=== PATIENT | male | born 1970 | race Hispanic/Latino ===

== ENCOUNTER 2018-05-12 02:14 | Emergency (ER) | payer SELFPAY ==
--- NOTE | 2018-05-12 03:55 | ED PDOC ---
HPI: Back Time Seen by Provider: 05/12/18 03:02 Chief Complaint (Nursing): Back Pain Chief Complaint (Provider): Lower back pain xdays History Per: Patient History/Exam Limitations: no limitations Onset/Duration Of Symptoms: Days Current Symptoms Are (Timing): Still Present Additional Complaint(s): 47 yo male with history of chronic back pain and sciatica presents with low back pain. PT states he is walking to [place] and his back and been hurting from walking so much. PT states that he would like some relief. Pt states he cannot afford motrin or a prescription for motrin. Pt denies new trauma, fever/chills, numbness/tingling. Past Medical History Reviewed: Historical Data, Nursing Documentation, Vital Signs Vital Signs: Last Vital Signs Temp 97.7 F 05/12/18 02:45 Pulse 67 05/12/18 02:45 Resp 16 05/12/18 02:45 BP 121/69 05/12/18 02:45 Pulse Ox 97 05/12/18 02:45 - Medical History PMH: No Chronic Diseases - Surgical History Surgical History: No Surg Hx - Family History Family History: States: No Known Family Hx - Living Arrangements Living Arrangements: With Family - Social History Current smoker - smoking cessation education provided: No - Allergies Allergies/Adverse Reactions: Allergies Allergy/AdvReac Type Severity Reaction Status Date / Time No Known Allergies Allergy Verified 05/12/18 02:47 Review of Systems ROS Statement: Except As Marked, All Systems Reviewed And Found Negative Constitutional: Negative for: Fever, Chills Cardiovascular: Negative for: Chest Pain Respiratory: Negative for: Cough Gastrointestinal: Negative for: Nausea, Vomiting, Abdominal Pain Genitourinary Male: Negative for: Dysuria, Frequency Musculoskeletal: Positive for: Back Pain Physical Exam - Reviewed Nursing Documentation Reviewed: Yes Vital Signs Reviewed: Yes - Physical Exam Appears: Positive for: Well, Non-toxic, No Acute Distress Head Exam: Positive for: ATRAUMATIC, NORMAL INSPECTION, NORMOCEPHALIC Skin: Positive for: Normal Color, Warm, DRY Eye Exam: Positive for: Normal appearance ENT: Positive for: Normal ENT Inspection Neck: Positive for: Normal, Painless ROM Cardiovascular/Chest: Positive for: Regular Rate, Rhythm Respiratory: Positive for: Normal Breath Sounds. Negative for: Accessory Muscle Use, Respiratory Distress Back: Positive for: Normal Inspection. Negative for: Vertebral Tenderness Extremity: Positive for: Normal ROM Neurologic/Psych: Positive for: Alert, Oriented - ECG O2 Sat by Pulse Oximetry: 97 Medical Decision Making Medical Decision Making: Motrin and tylenol PO given in ER. Disposition - Clinical Impression Clinical Impression: Chronic back pain - Patient ED Disposition Is Patient to be Admitted: No Counseled Patient/Family Regarding: Diagnosis, Need For Followup - Disposition Referrals: [facility] [Outside] Disposition: Routine/Home Disposition Time: 03:55 Condition: STABLE Instructions: Chronic Pain (DC)
[2018-05-12 06:02] VITALS: BP 132/78; PULSE 66; RESP 18; TEMP 98; O2SAT 95
== END 2018-05-12 06:19 | disposition home or self-care (01) ==
LOC: H.ER 02:14
DX: G89.29 Other chronic pain (principal)

== ENCOUNTER 2018-05-19 03:13 | Emergency (ER) | payer SELFPAY ==
[2018-05-19 03:29] VITALS: BP 111/65; PULSE 66; RESP 17; TEMP 97.7; O2SAT 95
--- NOTE | 2018-05-19 04:18 | ED PDOC ---
HPI: Back Time Seen by Provider: 05/19/18 03:28 Chief Complaint (Nursing): Back Pain Chief Complaint (Provider): Back Pain History Per: Patient History/Exam Limitations: no limitations Onset/Duration Of Symptoms: Days Current Symptoms Are (Timing): Still Present Previous Symptoms: Back Pain, Chronic Pain Additional Complaint(s): Valerio Herndon is a 47 year old male with a past medical history of sciatica who is presenting to the ED for evaluation of left lower back pain radiating down to the left leg. Patient states that he takes 600 mg of Advil for the pain but is unable to afford the medications. He reports that this pain is consistent with his previous pain. Patient offers no other medical complaints at this time. PMD: none provided Past Medical History Reviewed: Historical Data, Nursing Documentation, Vital Signs Vital Signs: Last Vital Signs Temp 97.7 F 05/19/18 03:26 Pulse 66 05/19/18 03:26 Resp 17 05/19/18 03:26 BP 111/65 05/19/18 03:26 Pulse Ox 95 05/19/18 03:26 - Medical History PMH: Back Problems - Surgical History Other surgeries: orthopedic - Family History Family History: States: Unknown Family Hx - Social History Current smoker - smoking cessation education provided: No Alcohol: None Drugs: Denies - Allergies Allergies/Adverse Reactions: Allergies Allergy/AdvReac Type Severity Reaction Status Date / Time No Known Allergies Allergy Verified 05/19/18 03:29 Review of Systems ROS Statement: Except As Marked, All Systems Reviewed And Found Negative Musculoskeletal: Positive for: Back Pain, Leg Pain Physical Exam - Reviewed Nursing Documentation Reviewed: Yes Vital Signs Reviewed: Yes - Physical Exam Appears: Positive for: Well, Non-toxic, No Acute Distress Head Exam: Positive for: ATRAUMATIC, NORMAL INSPECTION, NORMOCEPHALIC Back: Positive for: Normal Inspection. Negative for: L CVA Tenderness, R CVA Tenderness, Vertebral Tenderness Extremity: Positive for: Other (positive left straight leg raise; sensation and motor intact) Neurologic/Psych: Positive for: Alert, Oriented, Gait (normal). Negative for: Motor/Sensory Deficits - ECG O2 Sat by Pulse Oximetry: 95 (RA) Medical Decision Making Medical Decision Making: Time: 3:30 47 year old male with a history of sciatica presenting with back pain --Snoring upn entering room and needed to be physically shaken. --Not concerned for cauda equina syndrome, spinal stenosis, or significant acute processes. --Patient requests 600 mg of Ibuprofen. Will treat patient and then discharge. Scribe Attestation: Documented by, Marge Suarez acting as a scribe for Nick Peñaloza MD. Provider Scribe Attestation: All medical record entries made by the Scribe were at my direction and personally dictated by me. I have reviewed the chart and agree that the record accurately reflects my personal performance of the history, physical exam, medical decision making, and the department course for this patient. I have also personally directed, reviewed, and agree with the discharge instructions and disposition. Disposition - Clinical Impression Clinical Impression: Chronic back pain - Disposition Referrals: [facility] [Outside] Disposition: Routine/Home Disposition Time: 06:03 Condition: STABLE Instructions: Sciatica Forms: [employer] ([employer])
== END 2018-05-19 06:56 | disposition home or self-care (01) ==
LOC: H.ER 03:13
DX: M54.5 Low back pain (principal); G89.29 Other chronic pain

== ENCOUNTER 2018-05-22 23:10 | Emergency (ER) | payer SELFPAY ==
[2018-05-22 23:16] VITALS: BP 114/74; PULSE 69; RESP 18; TEMP 97.7; O2SAT 100
[2018-05-22] MEDS ORDERED: Naproxen 500 MG TAB PO ONE ×2 (23:22→23:28)
--- NOTE | 2018-05-22 23:24 | ED PDOC ---
HPI: Back Time Seen by Provider: 05/22/18 23:16 Chief Complaint (Nursing): Back Pain History Per: Patient Additional Complaint(s): Pt. states for the past 6 months he's been having intermittent lower back pain radiating down to his legs. Reports sustaining a back injury back in 2013. States he was getting trigger point injections but then lost his insurance. Denies new trauma, dysuria, hematuria, frequency, incontinence, abdominal pain, flank pain, fever. Past Medical History Vital Signs: Last Vital Signs Temp 97.7 F 05/22/18 23:14 Pulse 69 05/22/18 23:14 Resp 18 05/22/18 23:14 BP 114/74 05/22/18 23:14 Pulse Ox 100 05/22/18 23:14 - Medical History PMH: Back Problems - Family History Family History: States: Unknown Family Hx - Home Medications Home Medications: Ambulatory Orders Medication Instructions Recorded Naproxen [Naprosyn] 500 mg PO BID PRN #10 tab 05/22/18 - Allergies Allergies/Adverse Reactions: Allergies Allergy/AdvReac Type Severity Reaction Status Date / Time No Known Allergies Allergy Verified 05/22/18 23:14 Review of Systems ROS Statement: Except As Marked, All Systems Reviewed And Found Negative Musculoskeletal: Positive for: Back Pain Physical Exam - Physical Exam Appears: Positive for: Well, Non-toxic, No Acute Distress Skin: Positive for: Normal Color, Warm. Negative for: Rash Eye Exam: Positive for: Normal appearance Gastrointestinal/Abdominal: Positive for: Normal Exam, Soft. Negative for: Tenderness Back: Positive for: Normal Inspection, Muscle Spasm (minimal b/l paralumbar tenderness). Negative for: L CVA Tenderness, R CVA Tenderness, Vertebral Tenderness Extremity: Positive for: Normal ROM, Other (SLR negative b/l) Neurologic/Psych: Positive for: Alert, Oriented - ECG O2 Sat by Pulse Oximetry: 100 - Progress ED Course And Treament: Pt. requesting Naproxen. Naproxen 500mg PO ordered. On re-evaluation, pt. reports moderate pain relief. Disposition - Clinical Impression Clinical Impression: Low back pain - Patient ED Disposition Is Patient to be Admitted: No - Disposition [facility]errals: [facility]Outside[facility] Disposition: Routine/Home Disposition Time: 23:35 Condition: IMPROVED Additional Instructions: Follow up with [facility] for further evaluation. Return to ED immediately if symptoms worsen. Prescriptions: Naproxen [Naprosyn] 500 mg PO BID PRN #10 tab PRN Reason: Pain Instructions: Chronic Pain (DC) Forms: [facility] (Swedish) Print Language: SINHALA
== END 2018-05-22 23:52 | disposition home or self-care (01) ==
LOC: H.ER 23:10
DX: M54.5 Low back pain (principal)